=== PATIENT | male | born 1990 | race Two or more races ===

== ENCOUNTER 2023-09-05 12:12 | Emergency (ER) | payer MEDICAID, OTHER ==
[~2023-09-05] VITALS: Ht 167.6 cm; Wt 88.0 kg
[2023-09-05 12:56] VITALS: BP 138/85; PULSE 80; RESP 18; TEMP 98.4; O2SAT 96
[2023-09-05] MEDS ORDERED: IBUP-1456 PO (13:12)
== END 2023-09-05 13:14 | disposition home or self-care (01) ==
LOC: ER 12:12
DX: S83.8X1A Sprain of other specified parts of right knee, initial encounter (principal); Z79.899 Other long term (current) drug therapy; W22.8XXA Striking against or struck by other objects, initial encounter; Y93.89 Activity, other specified; Y92.89 Other specified places as the place of occurrence of the external cause; Y99.8 Other external cause status
CPT/HCPCS: 73562